=== PATIENT | male | born 1970 | race American Indian/Alaskan Native ===

== ENCOUNTER 2016-12-13 03:36 | Inpatient (IN) | payer MEDICAID ==
[2016-12-13] MEDS ORDERED: Dextrose 50% SYRINGE Inj (50 ml) ONE ×2 (03:47→04:42)
[2016-12-13] MEDS ORDERED: Dextrose 50% SYRINGE Inj (50 ml) IVP STA (03:52)
--- NOTE | 2016-12-13 03:59 | C.PDOC ---
Time Seen by Provider: 12/13/16 03:58 Chief Complaint (Nursing): Medical Clearance Past Medical History Vital Signs: Last Vital Signs Temp 97.5 F L 12/13/16 03:47 Pulse 100 H 12/13/16 03:47 Resp 18 12/13/16 03:47 BP 120/78 12/13/16 03:47 Pulse Ox 100 12/13/16 03:47 - Medical History PMH: HTN - Social History Hx Alcohol Use: No Hx Substance Use: No ED Course And Treatment O2 Sat by Pulse Oximetry: 100 Critical Care Time - Critical Care Note Total Time (in mins): 30 Documented critical care: time excludes all time spent performing seperately billable procedures. Disposition Counseled Patient/Family Regarding: Studies Performed, Diagnosis - Disposition Disposition Time: 03:58
--- NOTE | 2016-12-13 04:04 | C.PDOC ---
History Of Present Illness pt was found unresponsive by significant other. BS was 20 . was given 1 amp D50 , and pt became alert. His sugar dopped in the ed to 50 and another D50 was given. Pt states that he only took oral hypoglycemics, not insulin. No f/c/n/v, Time Seen by Provider: 12/13/16 03:58 Chief Complaint (Nursing): Medical Clearance History Per: Patient History/Exam Limitations: no limitations Onset/Duration Of Symptoms: Hrs Current Symptoms Are (Timing): Better Severity: Severe Pain Scale Rating Of: 7 Current Diabetic Medications: Oral Medication Causative (Exacerbating) Factor(s): Other Associated Infectious Symptoms: denies: Cough, Sore Throat, Sinus Congestion Treatment Prior To Provider Evaluation: D50W Given Response To Treatment: Good Response Recent travel outside of the [place]: No Additional History Per: EMS, Family Past Medical History Reviewed: Historical Data, Nursing Documentation, Vital Signs Vital Signs: Last Vital Signs Temp 97.5 F L 12/13/16 03:47 Pulse 100 H 12/13/16 03:47 Resp 18 12/13/16 03:47 BP 120/78 12/13/16 03:47 Pulse Ox 100 12/13/16 05:52 - Medical History PMH: HTN Family History: States: No Known Family Hx - Social History Hx Alcohol Use: No Hx Substance Use: No Review Of Systems Constitutional: Negative for: Fever, Chills Eyes: Negative for: Redness ENT: Negative for: Throat Pain Cardiovascular: Negative for: Chest Pain, Palpitations Respiratory: Negative for: Shortness of Breath Gastrointestinal: Negative for: Nausea, Vomiting, Abdominal Pain Genitourinary: Negative for: Dysuria Musculoskeletal: Negative for: Back Pain Skin: Negative for: Rash, Lesions Neurological: Negative for: Weakness Psych: Negative for: Anxiety Physical Exam - Physical Exam Appears: Non-toxic, No Acute Distress Head: Normacephalic Eye(s): bilateral: Normal Inspection, PERRL, EOMI Oral Mucosa: Moist Neck: Supple Chest: Symmetrical Cardiovascular: Rhythm Regular Respiratory: No Rales, No Rhonchi, No Wheezing Gastrointestinal/Abdominal: Soft, No Tenderness, No Distention Back: Normal Inspection Extremity: Normal ROM Extremity: Bilateral: Atraumatic, Normal Color And Temperature Neurological/Psych: Oriented x3, Normal Speech, Normal Cognition Gait: Steady ED Course And Treatment - Laboratory Results Result Diagrams: 12/13/16 05:09 12/13/16 05:09 O2 Sat by Pulse Oximetry: 100 Pulse Ox Interpretation: Normal Progress Note: blood work,, d50, accuchecks Critical Care Time - Critical Care Note Total Time (in mins): 30 Documented critical care: time excludes all time spent performing seperately billable procedures. Disposition Discussed With Dr.: Mani Olivares Comment: acceptd the pt on his service and took over the care at 6AM Doctor Will See Patient In The: ED Counseled Patient/Family Regarding: Studies Performed, Diagnosis - Disposition Referrals: Non [facility] Provider, [Primary Care Provider] - Disposition: HOSPITALIZED Disposition Time: 04:01 Condition: FAIR - POA Present On Arrival: Poor Glycemic Control - Clinical Impression Clinical Impression: Hypoglycemia Decision To Admit - Pt Status Changed To: Hospital Disposition Of: Inpatient - Admit Certification Admit to Inpatient:: After my assessment, the patient will require hospitalization for at least two midnights. This is because of the severity of symptoms shown, intensity of services needed, and/or the medical risk in this patient being treated as an outpatient. - InPatient: Physician Admission Certification: I certify that this patient requires 2 or more midnights of care for the following reason:: After my assessment, the patient will require hospitalization for at least two midnights. This is because of the severity of symptoms shown, intensity of services needed, and/or the medical risk in this patient being treated as an outpatient. - . Bed Request Type: Regular Admitting Physician: Mani Olivares Patient Diagnosis: Hypoglycemia
[2016-12-13] MEDS ORDERED: Dextrose 50% SYRINGE Inj (50 ml) IV STA (04:40)
[2016-12-13 05:00] LABS: VENOUS BLOOD GAS BASE EXCESS 5.7 mmol/L (0.0-2.0); VENOUS BLOOD GAS PCO2 53 mmHg (40-60); VENOUS BLOOD PH 7.39 (7.32-7.43)
[2016-12-13 05:09] LABS: BASO % 0.1 % (0.0-2.0); HEMATOCRIT 33.5 % (35.0-51.0); LYMPH # 2.1 K/uL (1.0-4.3); LYMPH % 35.3 % (20.0-40.0); MEAN CELL VOLUME 81.7 fL (80.0-94.0); MEAN CORPUSCULAR HEMOGLOBIN 27.2 pg (27.0-31.0); MEAN CORPUSCULAR HGB CONC 33.3 g/dL (33.0-37.0); MEAN PLATELET VOLUME 7.4 fL (7.2-11.7); MONO # 0.3 K/uL (0.0-0.8); MONO % 5.8 % (0.0-10.0); WHITE BLOOD COUNT 5.8 K/uL (4.8-10.8)
[2016-12-13 05:11] LABS: CHLORIDE 101 mmol/L (98-107); POTASSIUM 3.1 mmol/L (3.6-5.2); SODIUM 140 mmol/L (132-148)
[2016-12-13 05:13] LABS: ALKALINE PHOSPHATASE 70 U/L (38-126); AST/SGOT 52 U/L (17-59); BILIRUBIN,TOTAL 0.4 mg/dL (0.2-1.3); CARBON DIOXIDE 31 mmol/L (22-30); GFR AFRICAN-AMERICAN > 60
[2016-12-13 05:14] LABS: ALT/SGPT 65 U/L (21-72); BLOOD UREA NITROGEN 7 mg/dL (9-20); CALCIUM 8.6 mg/dl (8.6-10.4); GLUCOSE,RANDOM 84 mg/dL (75-110)
[2016-12-13 05:27] LABS: ALB/GLOB RATIO 1.1 (1.0-2.1)
[2016-12-13 05:40] LABS: RBC URINE < 1 /hpf (0-3); URINE BILIRUBIN NEGATIVE (NEGATIVE); URINE BLOOD NEGATIVE (NEGATIVE); URINE COLOR Yellow (YELLOW); URINE GLUCOSE (UA) 3+ mg/dL (Normal); URINE KETONE NEGATIVE (NEGATIVE); URINE LEUKOCYTE ESTERASE NEG Leu/uL (Negative); URINE PROTEIN NEGATIVE (NEGATIVE); URINE UROBILINOGEN NORMAL mg/dL (0.2-1.0); WBC URINE < 1 /hpf (0-5)
--- NOTE | 2016-12-13 05:59 | CP.PCM.HP ---
<Nick Collins - Last Filed: 12/13/16 07:21> History of Present Illness - History of Present Illness History of Present Illness: HPI: Patient is a 46 year black male, with PMHx of type two diabetes mellitus, HTN, hypothyroid, and recent facial infection, who presents to [facility] by EMS. Pt's significant other is at bedside, and explained she found pt initially unresponsive, sweaty, with clammy skin. With questioning pt was found to be able to answer but was confused and lethargic. Significant other called 911, and was told to give juice. EMS notes state BG was found to be 20 on presentation, along with 2 empty bottles of novolog and humalog insulin at home (which were his brother's medication). Pt was given one amp of D50 in the field , then one in ED, but both times pt BG retreated to hypoglycemic levels after 15 minute recheck. Pt admits taking oral hypoglycemic, Glipizide XL, at night before bed, but denies insulin usage. He also admits taking unknown antibiotic, for facial infection. PMHx: type two diabetes mellitus, HTN, hypothyroid PSHx: Gastric stricture repair () Fam Hx: father- DM, HTN; mother - HTN SHx: denies ever using tobacco or illicit drugs, admits social EtOH; works as busdriver, lives in [facility] on [address] Allergies: NKA Meds: Glipizide XL 10mg Daily, denies insulin usage Present on Admission - Present on Admission Any Indicators Present on Admission: No Review of Systems - Constitutional Constitutional: absent: Chills, Fever - EENT Eyes: absent: Change in Vision Ears: absent: Decreased Hearing Nose/Mouth/Throat: absent: Sore Throat - Cardiovascular Cardiovascular: absent: Chest Pain - Respiratory Respiratory: absent: Cough - Gastrointestinal Gastrointestinal: absent: Abdominal Pain, Nausea, Vomiting - Genitourinary Genitourinary: absent: Dysuria - Musculoskeletal Musculoskeletal: absent: Back Pain, Numbness, Tingling - Neurological Neurological: Confusion. absent: Abnormal Speech, Convulsions, Numbness, Tingling, Weakness - Psychiatric Psychiatric: Confusion. absent: Anxiety, Depression - Endocrine Endocrine: Fatigue, Flushing. absent: Palpitations Past Patient History - Infectious Disease Hx of Infectious Diseases: None - Past Social History Smoking Status: Never Smoked - CARDIAC Hx Hypertension: Yes - ENDOCRINE/METABOLIC Hx Diabetes Mellitus Type 1: Yes Hx Diabetes Mellitus Type 2: Yes Other/Comment: denies using insulin, ems found 2 empty bottles of novolog and humalog insulin at home - GASTROINTESTINAL Other/Comment: gastri stricture repair - PSYCHIATRIC Hx Substance Use: No - SURGICAL HISTORY Hx Surgeries: Yes Other/Comment: gastric stricture repair, [facility] - ANESTHESIA Hx Anesthesia Reactions: No Hx Malignant Hyperthermia: No Meds Allergies/Adverse Reactions: Allergies Allergy/AdvReac Type Severity Reaction Status Date / Time shellfish derived Allergy RASH Verified 12/13/16 12:21 Physical Exam - Constitutional Appears: Non-toxic, No Acute Distress - Head Exam Head Exam: ATRAUMATIC, NORMAL INSPECTION, NORMOCEPHALIC - Eye Exam Eye Exam: EOMI Pupil Exam: PERRL - ENT Exam ENT Exam: Mucous Membranes Moist - Neck Exam Neck exam: Positive for: Full Rom - Respiratory Exam Respiratory Exam: Clear to Auscultation Bilateral, NORMAL BREATHING PATTERN. absent: Accessory Muscle Use, Rales, Rhonchi, Wheezes - Cardiovascular Exam Cardiovascular Exam: REGULAR RHYTHM, +S1, +S2 - GI/Abdominal Exam GI & Abdominal Exam: Normal Bowel Sounds, Soft. absent: Tenderness - Extremities Exam Extremities exam: Positive for: normal inspection. Negative for: pedal edema - Back Exam Back exam: absent: CVA tenderness (L), CVA tenderness (R) - Neurological Exam Neurological exam: Alert, Oriented x3 - Psychiatric Exam Psychiatric exam: Normal Affect, Normal Mood - Skin Skin Exam: Normal Color, Warm Results - Vital Signs Recent Vital Signs: Last Vital Signs Temp 97.5 F L 12/13/16 03:47 Pulse 100 H 12/13/16 03:47 Resp 18 12/13/16 03:47 BP 120/78 12/13/16 03:47 Pulse Ox 100 12/13/16 05:52 - Labs Result Diagrams: 12/13/16 05:09 12/13/16 05:09 Labs: Laboratory Results - last 24 hr 12/13/16 12/13/16 12/13/16 04:39 04:50 05:09 WBC 5.8 RBC 4.10 L Hgb 11.1 L Hct 33.5 L MCV 81.7 MCH 27.2 MCHC 33.3 RDW 15.0 H Plt Count 359 MPV 7.4 Neut % (Auto) 58.8 Lymph % (Auto) 35.3 [place] % (Auto) 5.8 Eos % (Auto) 0.0 Baso % (Auto) 0.1 Neut # 3.4 Lymph # 2.1 [place] # 0.3 Eos # 0.0 Baso # 0.0 pO2 46 VBG pH 7.39 VBG pCO2 53 VBG HCO3 28.9 VBG Total CO2 33.7 H VBG O2 Sat (Calc) 86.4 H VBG Base Excess 5.7 H VBG Potassium 2.9 L Sodium 142.0 Chloride 107.0 Glucose 56 L Lactate 1.2 Potassium Carbon Dioxide Anion Gap BUN Creatinine Est GFR ( Amer) Est GFR (Non-Af Amer) POC Glucose (mg/dL) 45 L Random Glucose Calcium Total Bilirubin AST ALT Alkaline Phosphatase Total Protein Albumin Globulin Albumin/Globulin Ratio Venous Blood Potassium 2.9 L Urine Color Urine Clarity Urine pH Ur Specific [place] Urine Protein Urine Glucose (UA) Urine Ketones Urine Blood Urine Nitrate Urine Bilirubin Urine Urobilinogen Ur Leukocyte Esterase Urine WBC (Auto) Urine RBC (Auto) 12/13/16 12/13/16 05:09 05:29 WBC RBC Hgb Hct MCV MCH MCHC RDW Plt Count MPV Neut % (Auto) Lymph % (Auto) [place] % (Auto) Eos % (Auto) Baso % (Auto) Neut # Lymph # [place] # Eos # Baso # pO2 VBG pH VBG pCO2 VBG HCO3 VBG Total CO2 VBG O2 Sat (Calc) VBG Base Excess VBG Potassium Sodium 140 Chloride 101 Glucose Lactate Potassium 3.1 L Carbon Dioxide 31 H Anion Gap 11 BUN 7 L Creatinine 0.7 L Est GFR ( Amer) > 60 Est GFR (Non-Af Amer) > 60 POC Glucose (mg/dL) Random Glucose 84 Calcium 8.6 Total Bilirubin 0.4 AST 52 ALT 65 Alkaline Phosphatase 70 Total Protein 6.0 L Albumin 3.2 L Globulin 2.8 Albumin/Globulin Ratio 1.1 Venous Blood Potassium Urine Color Yellow Urine Clarity Clear Urine pH 6.0 Ur Specific [place] 1.012 Urine Protein Negative Urine Glucose (UA) 3+ H Urine Ketones Negative Urine Blood Negative Urine Nitrate Negative Urine Bilirubin Negative Urine Urobilinogen Normal Ur Leukocyte Esterase Neg Urine WBC (Auto) < 1 Urine RBC (Auto) < 1 Assessment & Plan - Assessment and Plan (Free Text) Assessment: 46 year black male, with PMHx of type two diabetes mellitus, HTN, hypothyroid, and recent facial infection, who presents to [facility] by EMS for hypoglycemia Plan: Diabetes Mellitus, type two hypoglycemic event Diagnosed 2015 two amps of D50 given in ED D10 @ 100cc/hr Accuchecks Q4H Start regular diet, but switch to diabetic diet when BG stable Holding Home med: Glipizide XL 10mg - recommend switch to Metformin provided Cr WNL f/u A1C UDS: negative Hypothyroid Pt takes unknown dose of Synthroid daily f/u TSH HTN Normotensive Unknown home med - will f/u with pharmacy Facial infection Unknown antibiotic x 10 days No leukocytosis, afebrile Prophylaxis Pt ambulates, no SCD, heparin indicated PPI not indicated <Mani Olivares P - Last Filed: 12/16/16 23:26> Results - Vital Signs Recent Vital Signs: Last Vital Signs Temp 98.1 F 12/14/16 08:00 Pulse 95 H 12/14/16 08:00 Resp 20 12/14/16 08:00 BP 123/70 12/14/16 08:00 Pulse Ox 96 12/14/16 08:00 - Labs Result Diagrams: 12/14/16 08:57 12/14/16 08:57 Attending/Attestation - Attestation I have personally seen and examined this patient.: Yes I have fully participated in the care of the patient.: Yes I have reviewed all pertinent clinical information: Yes
[2016-12-13 06:42] VITALS: RESP 20
[2016-12-13] MEDS: Potassium Chloride 20 mEq ER Tab PO SCH ×2 (11:15→17:26)
[2016-12-13] MEDS ORDERED: Dextrose 5%/0.9% NS 1,000 ML IV SCH (11:45)
--- NOTE | 2016-12-13 12:34 | CP.PCM.PN ---
<Maura Higgins - Last Filed: 12/13/16 12:28> Subjective - Date & Time of Evaluation Date of Evaluation: 12/13/16 Time of Evaluation: 10:00 - Subjective Subjective: Medicine Note for Dr. Callaway, Patient was seen and examined at bedside. 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 However his pharmacy was called ([phone]) and he recently filled prescriptions on for Lantus 25 QHS and Novolin 15units TID. Patient instructed to stop the SC insulins and to remain on the metformin and glybizide that we will start him on tomorrow. Patient denied fever, chills, headache, chest pain, abdominal pain , or urinary symptoms. Objective - Vital Signs/Intake and Output Vital Signs (last 24 hours): Temp Pulse Resp BP Pulse Ox 97.7 F 79 20 126/68 100 12/13/16 06:41 12/13/16 06:41 12/13/16 06:41 12/13/16 06:41 12/13/16 06:42 - Medications Medications: Current Medications Glyburide (Micronase) 2.5 mg PO BID [facility] Dextrose/Sodium Chloride (Dextrose 5%/0.9% Ns 1000 Ml) 1,000 mls @ 100 mls/hr IV .Q10H [facility] Metformin HCl (Glucophage) 1,000 mg PO BID [facility] Potassium Chloride (K-Dur 20 Meq Er Tab) 40 meq PO BID LINA Stop: 12/14/16 10:01 Last Admin: 12/13/16 11:15 Dose: 40 meq - Constitutional Appears: No Acute Distress - Head Exam Head Exam: NORMAL INSPECTION, NORMOCEPHALIC - ENT Exam ENT Exam: Mucous Membranes Moist - Respiratory Exam Respiratory Exam: Clear to Ausculation Bilateral, NORMAL BREATHING PATTERN. absent: Wheezes - Cardiovascular Exam Cardiovascular Exam: REGULAR RHYTHM - GI/Abdominal Exam GI & Abdominal Exam: Soft, Normal Bowel Sounds. absent: Distended, Tenderness - Extremities Exam Extremities Exam: Normal Inspection. absent: Pedal Edema, Tenderness - Neurological Exam Neurological Exam: Alert, Awake, Oriented x3 - Skin Skin Exam: Dry, Intact, Normal Color, Warm Assessment and Plan - Assessment and Plan (Free Text) Plan: Diabetes Mellitus, type two D5 NS 100cc Accuchecks Q4H Start regular diet, but switch to diabetic diet when BG stable Holding Home med: Glipizide XL 10mg Will start Metformin 1000mg BID and Glipizide 2.5 mg PO BID tomorrow HA1C: 9.3 UDS: negative Hypothyroid Pt takes unknown dose of Synthroid daily f/u TSH HTN Normotensive Unknown home meds Facial infection Unknown antibiotic x 10 days No leukocytosis, afebrile Prophylaxis Pt ambulates, no SCD, heparin indicated PPI not indicated DW Gisela Enriquez DO, PGY-1 <Lang Callaway - Last Filed: 01/18/17 12:17> Objective - Vital Signs/Intake and Output Vital Signs (last 24 hours): Temp Pulse Resp BP Pulse Ox 98.1 F 95 H 20 123/70 96 12/14/16 08:00 12/14/16 08:00 12/14/16 08:00 12/14/16 08:00 12/14/16 08:00 - Labs Labs: 12/14/16 08:57 12/14/16 08:57 Attending/Attestation - Attestation I have personally seen and examined this patient.: Yes I have fully participated in the care of the patient.: Yes I have reviewed all pertinent clinical information, including history, physical exam and plan: Yes Notes (Text): Patient Seen and examined with the resident. Agree with the resident's evaluation, assessment and plan. Diabetes Mellitus, type 2 uncontrolled Hypothyroid HTN Facial infection
[2016-12-13] MEDS ORDERED: (Novolin R) Insulin Human Regular 100 units/ml vial SC SCH (22:30)
[2016-12-14 08:20] VITALS: BP 123/70; PULSE 95; TEMP 98.1; O2SAT 96
[2016-12-14 09:06] LABS: HEMATOCRIT 35.9 % (35.0-51.0); MEAN CELL VOLUME 81.6 fL (80.0-94.0); MEAN CORPUSCULAR HEMOGLOBIN 27.1 pg (27.0-31.0); MEAN CORPUSCULAR HGB CONC 33.2 g/dL (33.0-37.0); MEAN PLATELET VOLUME 7.8 fL (7.2-11.7); RED CELL DISTRIBUTION WIDTH 15.5 % (11.5-14.5); WHITE BLOOD COUNT 6.6 K/uL (4.8-10.8)
[2016-12-14 09:18] LABS: CHLORIDE 99 mmol/L (98-107); POTASSIUM 4.5 mmol/L (3.6-5.2); SODIUM 136 mmol/L (132-148)
[2016-12-14 09:20] LABS: ALB/GLOB RATIO 1.3 (1.0-2.1); AST/SGOT 45 U/L (17-59); BILIRUBIN,TOTAL 0.7 mg/dL (0.2-1.3); BLOOD UREA NITROGEN 10 mg/dL (9-20); CARBON DIOXIDE 28 mmol/L (22-30); CHOLESTEROL 166 mg/dL (0-199); GFR AFRICAN-AMERICAN > 60; TOTAL PROTEIN 6.7 g/dL (6.3-8.3)
[2016-12-14 09:21] LABS: ALKALINE PHOSPHATASE 97 U/L (38-126); ALT/SGPT 65 U/L (21-72); MAGNESIUM 1.7 mg/dL (1.6-2.3); PHOSPHOROUS 3.7 mg/dL (2.5-4.5)
[2016-12-14 09:38] LABS: GLUCOSE,RANDOM 271 mg/dL (75-110)
--- NOTE | 2016-12-14 09:40 | CP.PCM.DIS ---
<Maura Higgins - Last Filed: 12/14/16 10:37> Provider - Provider Date of Admission: 12/13/16 06:39 Attending physician: Mani Olivares MD Time Spent in preparation of Discharge (in minutes): 0 (Patient elopement ) Hospital Course - Lab Results Lab Results: Most Recent Lab Values WBC 6.6 K/uL (4.8-10.8) 12/14/16 08:57 RBC 4.40 Mil/uL (4.40-5.90) 12/14/16 08:57 Hgb 11.9 g/dL (12.0-18.0) L 12/14/16 08:57 Hct 35.9 % (35.0-51.0) 12/14/16 08:57 MCV 81.6 fL (80.0-94.0) 12/14/16 08:57 MCH 27.1 pg (27.0-31.0) 12/14/16 08:57 MCHC 33.2 g/dL (33.0-37.0) 12/14/16 08:57 RDW 15.5 % (11.5-14.5) H 12/14/16 08:57 Plt Count 372 K/uL (130-400) 12/14/16 08:57 MPV 7.8 fL (7.2-11.7) 12/14/16 08:57 Neut % (Auto) 58.8 % (50.0-75.0) 12/13/16 05:09 Lymph % (Auto) 35.3 % (20.0-40.0) 12/13/16 05:09 Shannon % (Auto) 5.8 % (0.0-10.0) 12/13/16 05:09 Eos % (Auto) 0.0 % (0.0-4.0) 12/13/16 05:09 Baso % (Auto) 0.1 % (0.0-2.0) 12/13/16 05:09 Neut # 3.4 K/uL (1.8-7.0) 12/13/16 05:09 Lymph # 2.1 K/uL (1.0-4.3) 12/13/16 05:09 Shannon # 0.3 K/uL (0.0-0.8) 12/13/16 05:09 Eos # 0.0 K/uL (0.0-0.7) 12/13/16 05:09 Baso # 0.0 K/uL (0.0-0.2) 12/13/16 05:09 pO2 46 mm/Hg (30-55) 12/13/16 04:50 VBG pH 7.39 (7.32-7.43) 12/13/16 04:50 VBG pCO2 53 mmHg (40-60) 12/13/16 04:50 VBG HCO3 28.9 mmol/L 12/13/16 04:50 VBG Total CO2 33.7 mmol/L (22-28) H 12/13/16 04:50 VBG O2 Sat (Calc) 86.4 % (40-65) H 12/13/16 04:50 VBG Base Excess 5.7 mmol/L (0.0-2.0) H 12/13/16 04:50 VBG Potassium 2.9 mmol/L (3.6-5.2) L 12/13/16 04:50 Sodium 142.0 mmol/l (132-148) 12/13/16 04:50 Chloride 107.0 mmol/L (98-107) 12/13/16 04:50 Glucose 56 mg/dl (75-110) L 12/13/16 04:50 Lactate 1.2 mmol/L (0.7-2.1) 12/13/16 04:50 Sodium 136 mmol/L (132-148) 12/14/16 08:57 Potassium 4.5 mmol/L (3.6-5.2) 12/14/16 08:57 Chloride 99 mmol/L (98-107) 12/14/16 08:57 Carbon Dioxide 31 mmol/L (22-30) H 12/13/16 05:09 Anion Gap 11 (10-20) 12/13/16 05:09 BUN 7 mg/dL (9-20) L 12/13/16 05:09 Creatinine 0.7 MG/DL (0.8-1.5) L 12/13/16 05:09 Est GFR ( Amer) > 60 12/13/16 05:09 Est GFR (Non-Af Amer) > 60 12/13/16 05:09 POC Glucose (mg/dL) 274 mg/dL (65-110) H 12/14/16 07:13 Random Glucose 84 mg/dL (75-110) 12/13/16 05:09 Hemoglobin A1c 9.3 % (4.2-6.5) H 12/13/16 06:46 Calcium 8.6 mg/dl (8.6-10.4) 12/13/16 05:09 Total Bilirubin 0.4 mg/dL (0.2-1.3) 12/13/16 05:09 AST 52 U/L (17-59) 12/13/16 05:09 ALT 65 U/L (21-72) 12/13/16 05:09 Alkaline Phosphatase 70 U/L (38-126) 12/13/16 05:09 Total Protein 6.0 g/dL (6.3-8.3) L 12/13/16 05:09 Albumin 3.8 g/dL (3.5-5.0) 12/14/16 08:57 Globulin 2.8 gm/dL (2.2-3.9) 12/13/16 05:09 Albumin/Globulin Ratio 1.1 (1.0-2.1) 12/13/16 05:09 Venous Blood Potassium 2.9 mmol/L (3.6-5.2) L 12/13/16 04:50 Urine Color Yellow (YELLOW) 12/13/16 05:29 Urine Clarity Clear (Clear) 12/13/16 05:29 Urine pH 6.0 (5.0-8.0) 12/13/16 05:29 Ur Specific [place] 1.012 (1.003-1.030) 12/13/16 05:29 Urine Protein Negative mg/dL (NEGATIVE) 12/13/16 05:29 Urine Glucose (UA) 3+ mg/dL (Normal) H 12/13/16 05:29 Urine Ketones Negative mg/dL (NEGATIVE) 12/13/16 05:29 Urine Blood Negative (NEGATIVE) 12/13/16 05:29 Urine Nitrate Negative (NEGATIVE) 12/13/16 05:29 Urine Bilirubin Negative (NEGATIVE) 12/13/16 05:29 Urine Urobilinogen Normal mg/dL (0.2-1.0) 12/13/16 05:29 Ur Leukocyte Esterase Neg [place]/uL (Negative) 12/13/16 05:29 Urine WBC (Auto) < 1 /hpf (0-5) 12/13/16 05:29 Urine RBC (Auto) < 1 /hpf (0-3) 12/13/16 05:29 Urine Opiates Screen Negative (NEGATIVE) 12/13/16 05:29 Urine Methadone Screen Negative (NEGATIVE) 12/13/16 05:29 Ur Barbiturates Screen Negative (NEGATIVE) 12/13/16 05:29 Ur Phencyclidine Scrn Negative (NEGATIVE) 12/13/16 05:29 Ur Amphetamines Screen Negative (NEGATIVE) 12/13/16 05:29 U Benzodiazepines Scrn Negative (NEGATIVE) 12/13/16 05:29 U Oth Cocaine Metabols Negative (NEGATIVE) 12/13/16 05:29 U Cannabinoids Screen Negative (NEGATIVE) 12/13/16 05:29 Serum Ketones Negative (NEGATIVE) 12/13/16 05:09 - Hospital Course Hospital Course: Upon Admission: HPI: Patient is a 46 year black male, with PMHx of type two diabetes mellitus, HTN, hypothyroid, and recent facial infection, who presents to [facility] by EMS. Pt's significant other is at bedside, and explained she found pt initially unresponsive, sweaty, with clammy skin. With questioning pt was found to be able to answer but was confused and lethargic. Significant other called 911, and was told to give juice. EMS notes state BG was found to be 20 on presentation, along with 2 empty bottles of novolog and humalog insulin at home (which were his brother's medication). Pt was given one amp of D50 in the field , then one in ED, but both times pt BG retreated to hypoglycemic levels after 15 minute recheck. Pt admits taking oral hypoglycemic, Glipizide XL, at night before bed, but denies insulin usage. He also admits taking unknown antibiotic, for facial infection. PMHx: type two diabetes mellitus, HTN, hypothyroid PSHx: Gastric stricture repair () Fam Hx: father- DM, HTN; mother - HTN SHx: denies ever using tobacco or illicit drugs, admits social EtOH; works as busdriver, lives in [facility] [place] Allergies: NKA Meds: Glipizide XL 10mg Daily, denies insulin usage Throughout Hospital Course: Patient was admitted for hypoglycemia. 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 He was placed on a D10 drip and giving a regular diet to bring up his blood sugar. Patient was later changed to D5 and a diabetic diet. Once his BS were 200-300, D5 was discontinued and his blood sugars were checked every 4 hours. The following morning patient was started on Metformin and Glyburide with breakfast. Patient was reassured that he would be discharged later today, once we check his sugars and made sure he didn't have any hypoglycemic event on the two medications. 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 Patient was told his sugars would be rechecked at 11am to determine his time for discharge. 9:05AM CODE ECHO: patient eloped with hep lock in place. Security and police notified. Discharge Exam - Head Exam Head Exam: NORMAL INSPECTION, NORMOCEPHALIC - Eye Exam Eye Exam: Normal appearance - ENT Exam ENT Exam: Mucous Membranes Moist - Respiratory Exam Respiratory Exam: Clear to PA & Lateral, NORMAL BREATHING PATTERN. absent: Wheezes - Cardiovascular Exam Cardiovascular Exam: REGULAR RHYTHM - GI/Abdominal Exam GI & Abdominal Exam: Normal Bowel Sounds, Soft. absent: Distended, Tenderness - Extremities Exam Extremities exam: normal inspection - Neurological Exam Neurological exam: Alert, Oriented x3 - Skin Skin Exam: Dry, Intact, Normal Color, Warm Discharge Plan - Follow Up Plan Condition: FAIR Disposition: ELOPED FROM NURSING UNIT Additional Instructions: Patient ELOPED Referrals: Non [facility] Provider, [Non-Staff] - <Lang Callaway - Last Filed: 01/18/17 12:18> Provider - Provider Date of Admission: 12/13/16 06:39 Attending physician: Mani Olivares MD Time Spent in preparation of Discharge (in minutes): 35 Hospital Course - Lab Results Lab Results: Most Recent Lab Values WBC 6.6 K/uL (4.8-10.8) 12/14/16 08:57 RBC 4.40 Mil/uL (4.40-5.90) 12/14/16 08:57 Hgb 11.9 g/dL (12.0-18.0) L 12/14/16 08:57 Hct 35.9 % (35.0-51.0) 12/14/16 08:57 MCV 81.6 fL (80.0-94.0) 12/14/16 08:57 MCH 27.1 pg (27.0-31.0) 12/14/16 08:57 MCHC 33.2 g/dL (33.0-37.0) 12/14/16 08:57 RDW 15.5 % (11.5-14.5) H 12/14/16 08:57 Plt Count 372 K/uL (130-400) 12/14/16 08:57 MPV 7.8 fL (7.2-11.7) 12/14/16 08:57 Neut % (Auto) 58.8 % (50.0-75.0) 12/13/16 05:09 Lymph % (Auto) 35.3 % (20.0-40.0) 12/13/16 05:09 Shannon % (Auto) 5.8 % (0.0-10.0) 12/13/16 05:09 Eos % (Auto) 0.0 % (0.0-4.0) 12/13/16 05:09 Baso % (Auto) 0.1 % (0.0-2.0) 12/13/16 05:09 Neut # 3.4 K/uL (1.8-7.0) 12/13/16 05:09 Lymph # 2.1 K/uL (1.0-4.3) 12/13/16 05:09 Shannon # 0.3 K/uL (0.0-0.8) 12/13/16 05:09 Eos # 0.0 K/uL (0.0-0.7) 12/13/16 05:09 Baso # 0.0 K/uL (0.0-0.2) 12/13/16 05:09 pO2 46 mm/Hg (30-55) 12/13/16 04:50 VBG pH 7.39 (7.32-7.43) 12/13/16 04:50 VBG pCO2 53 mmHg (40-60) 12/13/16 04:50 VBG HCO3 28.9 mmol/L 12/13/16 04:50 VBG Total CO2 33.7 mmol/L (22-28) H 12/13/16 04:50 VBG O2 Sat (Calc) 86.4 % (40-65) H 12/13/16 04:50 VBG Base Excess 5.7 mmol/L (0.0-2.0) H 12/13/16 04:50 VBG Potassium 2.9 mmol/L (3.6-5.2) L 12/13/16 04:50 Sodium 142.0 mmol/l (132-148) 12/13/16 04:50 Chloride 107.0 mmol/L (98-107) 12/13/16 04:50 Glucose 56 mg/dl (75-110) L 12/13/16 04:50 Lactate 1.2 mmol/L (0.7-2.1) 12/13/16 04:50 Sodium 136 mmol/L (132-148) 12/14/16 08:57 Potassium 4.5 mmol/L (3.6-5.2) 12/14/16 08:57 Chloride 99 mmol/L (98-107) 12/14/16 08:57 Carbon Dioxide 28 mmol/L (22-30) 12/14/16 08:57 Anion Gap 13 (10-20) 12/14/16 08:57 BUN 10 mg/dL (9-20) 12/14/16 08:57 Creatinine 0.7 MG/DL (0.8-1.5) L 12/14/16 08:57 Est GFR ( Amer) > 60 12/14/16 08:57 Est GFR (Non-Af Amer) > 60 12/14/16 08:57 POC Glucose (mg/dL) 274 mg/dL (65-110) H 12/14/16 07:13 Random Glucose 271 mg/dL (75-110) H 12/14/16 08:57 Hemoglobin A1c 9.3 % (4.2-6.5) H 12/13/16 06:46 Calcium 9.0 mg/dl (8.6-10.4) 12/14/16 08:57 Phosphorus 3.7 mg/dL (2.5-4.5) 12/14/16 08:57 Magnesium 1.7 mg/dL (1.6-2.3) 12/14/16 08:57 Total Bilirubin 0.7 mg/dL (0.2-1.3) 12/14/16 08:57 AST 45 U/L (17-59) 12/14/16 08:57 ALT 65 U/L (21-72) 12/14/16 08:57 Alkaline Phosphatase 97 U/L (38-126) 12/14/16 08:57 Total Protein 6.7 g/dL (6.3-8.3) 12/14/16 08:57 Albumin 3.8 g/dL (3.5-5.0) 12/14/16 08:57 Globulin 2.9 gm/dL (2.2-3.9) 12/14/16 08:57 Albumin/Globulin Ratio 1.3 (1.0-2.1) 12/14/16 08:57 Triglycerides 65 mg/dL (0-149) 12/14/16 08:57 Cholesterol 166 mg/dL (0-199) 12/14/16 08:57 LDL Cholesterol Direct 77 mg/dL (0-129) 12/14/16 08:57 HDL Cholesterol 68 mg/dL (30-70) 12/14/16 08:57 Venous Blood Potassium 2.9 mmol/L (3.6-5.2) L 12/13/16 04:50 Urine Color Yellow (YELLOW) 12/13/16 05:29 Urine Clarity Clear (Clear) 12/13/16 05:29 Urine pH 6.0 (5.0-8.0) 12/13/16 05:29 Ur Specific [place] 1.012 (1.003-1.030) 12/13/16 05:29 Urine Protein Negative mg/dL (NEGATIVE) 12/13/16 05:29 Urine Glucose (UA) 3+ mg/dL (Normal) H 12/13/16 05:29 Urine Ketones Negative mg/dL (NEGATIVE) 12/13/16 05:29 Urine Blood Negative (NEGATIVE) 12/13/16 05:29 Urine Nitrate Negative (NEGATIVE) 12/13/16 05:29 Urine Bilirubin Negative (NEGATIVE) 12/13/16 05:29 Urine Urobilinogen Normal mg/dL (0.2-1.0) 12/13/16 05:29 Ur Leukocyte Esterase Neg [place]/uL (Negative) 12/13/16 05:29 Urine WBC (Auto) < 1 /hpf (0-5) 12/13/16 05:29 Urine RBC (Auto) < 1 /hpf (0-3) 12/13/16 05:29 Urine Opiates Screen Negative (NEGATIVE) 12/13/16 05:29 Urine Methadone Screen Negative (NEGATIVE) 12/13/16 05:29 Ur Barbiturates Screen Negative (NEGATIVE) 12/13/16 05:29 Ur Phencyclidine Scrn Negative (NEGATIVE) 12/13/16 05:29 Ur Amphetamines Screen Negative (NEGATIVE) 12/13/16 05:29 U Benzodiazepines Scrn Negative (NEGATIVE) 12/13/16 05:29 U Oth Cocaine Metabols Negative (NEGATIVE) 12/13/16 05:29 U Cannabinoids Screen Negative (NEGATIVE) 12/13/16 05:29 Serum Ketones Negative (NEGATIVE) 12/13/16 05:09 Attending/Attestation - Attestation I have personally seen and examined this patient.: Yes I have fully participated in the care of the patient.: Yes I have reviewed all pertinent clinical information, including history, physical exam and plan: Yes Notes (Text): Diabetes Mellitus, type 2 uncontrolled Hypothyroid HTN Facial infection
== END 2016-12-14 09:14 | disposition left against medical advice (07) | DRG 294 ==
LOC: C.ER 03:36 → SUPCPDRO 03:36 → C.3T 06:39 → UNDODISIN 12-14 10:42
PROVIDERS: ADMIT Internal Medicine; ATTEND Internal Medicine
DX: E11.649 Type 2 diabetes mellitus with hypoglycemia without coma (principal); I10 Essential (primary) hypertension; E03.9 Hypothyroidism, unspecified; Z79.84 Long term (current) use of oral hypoglycemic drugs

== ENCOUNTER 2017-02-08 23:10 | Emergency (ER) | payer MEDICAID ==
[2017-02-08] MEDS ORDERED: Glucagon Recombinant 1 mg Inj ONE (23:17)
[2017-02-08] MEDS ORDERED: Dextrose 50% SYRINGE Inj (50 ml) ONE ×2 (23:24→23:25)
--- NOTE | 2017-02-08 23:29 | C.PDOC ---
History Of Present Illness Pt was found unresponsive on the street. Basic life support brought the pt in . Pt diaphoiretic, unresponsive, with poss seizure. Blood sugar less than 20 Time Seen by Provider: 02/08/17 23:10 Chief Complaint (Nursing): Altered Mental Status History Per: EMS History/Exam Limitations: Other Onset/Duration Of Symptoms: Unknown Onset Of Symptoms: Cannot Confirm Onset Current Symptoms Are (Timing): Still Present Usual Baseline: Alert Oriented Exacerbating Factor(s): Diabetic Use Of Anticoag/Antiplatelets: Unknown Speech Is: Other Decreased Ability To: Other (unresponsive) Severity: None Pain Scale Rating Of: 0 Recent travel outside of the [place]: No Additional History Per: EMS Associated Symptoms: Sweating, Syncope Past Medical History Reviewed: Historical Data, Nursing Documentation, Vital Signs Vital Signs: Last Vital Signs Temp 98 F 02/09/17 00:41 Pulse 84 02/09/17 00:41 Resp 18 02/09/17 00:41 BP 134/82 02/09/17 00:41 Pulse Ox 100 02/09/17 00:45 - Medical History PMH: HTN Family History: States: No Known Family Hx - Social History Hx Alcohol Use: No Hx Substance Use: No Review Of Systems Review Of Systems: ROS cannot be obtained secondary to pt's inabilty to answer questions. Physical Exam - Physical Exam Appears: In Acute Distress Skin: Diaphoretic Head: Atraumatic, Normacephalic Eye(s): bilateral: Normal Inspection Oral Mucosa: Moist Neck: Supple Chest: Symmetrical Cardiovascular: Rhythm Regular Respiratory: No Rales, No Rhonchi, No Wheezing Gastrointestinal/Abdominal: Soft, No Tenderness Back: No CVA Tenderness Extremity: No Pedal Edema Extremity: Bilateral: Atraumatic Neurological/Psych: Other (unresponsive, possible seizure) Gait: Unable To Assess ED Course And Treatment - Laboratory Results Result Diagrams: 02/08/17 23:51 02/09/17 00:22 O2 Sat by Pulse Oximetry: 100 Pulse Ox Interpretation: Normal Progress Note: I've placed 18 g iv in left EJ without difficulty. Given 2 amps D50. pt is now aaox3 and responsive. doest not recall the event. 12:58 am feels fine. wants to go home. pt had refused abg Reevaluation Time: 00:59 Reassessment Condition: Improved Critical Care Time - Critical Care Note Total Time (in mins): 30 Documented critical care: time excludes all time spent performing seperately billable procedures. Disposition Counseled Patient/Family Regarding: Studies Performed, Diagnosis, Need For Followup - Disposition Referrals: [facility] [Outside] [facility] [Outside] Disposition: HOME/ ROUTINE Disposition Time: 00:45 Condition: IMPROVED Instructions: Diabetic Hypoglycemia (DC) Forms: [facility] (Gambian) - Clinical Impression Clinical Impression: Hypoglycemia
[2017-02-08] MEDS ORDERED: Dextrose 50% SYRINGE Inj (50 ml) IVP STA (23:30)
[2017-02-08 23:54] LABS: BASO % 0.6 % (0.0-2.0); EOS % 0.5 % (0.0-4.0); HEMATOCRIT 35.8 % (35.0-51.0); LYMPH # 1.3 K/uL (1.0-4.3); LYMPH % 32.2 % (20.0-40.0); MEAN CELL VOLUME 80.3 fL (80.0-94.0); MEAN CORPUSCULAR HGB CONC 33.7 g/dL (33.0-37.0); MEAN PLATELET VOLUME 7.9 fL (7.2-11.7); MONO # 0.2 K/uL (0.0-0.8); MONO % 5.7 % (0.0-10.0); NRBC % 0.1 % (0.0-2.0); RED CELL DISTRIBUTION WIDTH 13.6 % (11.5-14.5); WHITE BLOOD COUNT 4.1 K/uL (4.8-10.8)
[2017-02-08 23:56] LABS: URINE BILIRUBIN NEGATIVE (NEGATIVE); URINE BLOOD NEGATIVE (NEGATIVE); URINE COLOR Straw (YELLOW); URINE GLUCOSE (UA) 3+ mg/dL (Normal); URINE KETONE NEGATIVE (NEGATIVE); URINE LEUKOCYTE ESTERASE NEG Leu/uL (Negative); URINE PROTEIN NEGATIVE (NEGATIVE); URINE UROBILINOGEN NORMAL mg/dL (0.2-1.0); WBC URINE < 1 /hpf (0-5)
[2017-02-09 00:42] VITALS: RESP 18
[2017-02-09] MEDS ORDERED: Glucagon Recombinant 1 mg Inj IM STA (00:44)
[2017-02-09 00:45] VITALS: O2SAT 100
[2017-02-09 00:46] LABS: ALB/GLOB RATIO 1.7 (1.0-2.1); ALKALINE PHOSPHATASE 69 U/L (38-126); ALT/SGPT 96 U/L (21-72); AST/SGOT 42 U/L (17-59); BILIRUBIN,TOTAL 0.4 mg/dL (0.2-1.3); BLOOD UREA NITROGEN 11 mg/dL (9-20); CALCIUM 8.7 mg/dl (8.6-10.4); CARBON DIOXIDE 25 mmol/L (22-30); CHLORIDE 100 mmol/L (98-107); GFR AFRICAN-AMERICAN > 60; GLUCOSE,RANDOM 135 mg/dL (75-110); POTASSIUM 3.7 mmol/L (3.6-5.2); SODIUM 140 mmol/L (132-148); TOTAL PROTEIN 6.3 g/dL (6.3-8.3)
[2017-02-09 01:51] VITALS: BP 155/91; PULSE 92; TEMP 97.9
--- NOTE | 2017-02-09 08:00 | RAD ---
PROCEDURE: CHEST RADIOGRAPH, 1 VIEW HISTORY: Diabetic COMPARISON: None available. FINDINGS: LUNGS: No focal infiltrate or effusion. PLEURA: No pneumothorax or pleural fluid seen. CARDIOVASCULAR: Normal. OSSEOUS STRUCTURES: No significant abnormalities. VISUALIZED UPPER ABDOMEN: Normal. OTHER FINDINGS: None. IMPRESSION: No active disease.
== END 2017-02-09 01:52 | disposition home or self-care (01) ==
LOC: C.ER 23:10
DX: E11.649 Type 2 diabetes mellitus with hypoglycemia without coma (principal)
CPT/HCPCS: 36415; 71010; 80053; 81001; 82009; 82948; 85025; 96372; 96374; 99285; J1610